=== PATIENT | female | born 1990 | race American Indian/Alaskan Native ===

== ENCOUNTER 2017-05-28 20:17 | Emergency (ER) | payer SELFPAY ==
--- NOTE | 2017-05-28 23:00 | XRay Report ---
FINAL REPORT EXAM: XR KNEE 1-2V RT HISTORY: right knee injury TECHNIQUE: AP, and lateral views of the right knee PRIORS: None. FINDINGS: No acute fracture or dislocation is seen. The soft tissues are unremarkable with no evidence for suprapatellar joint effusion. Joint spaces are maintained and bony mineralization is normal. IMPRESSION: Negative views of the right knee.
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
[2017-05-29 06:45] VITALS: BP 110/72
== END 2017-05-29 01:05 | disposition home or self-care (01) ==
LOC: ED 20:17
DX: M54.2 Cervicalgia (principal); M79.602 Pain in left arm; M25.561 Pain in right knee
CPT/HCPCS: 81025; 99283

== ENCOUNTER 2017-10-21 09:33 | Emergency (ER) | payer SELFPAY ==
[2017-10-21 09:51] VITALS: BP 112/74
[2017-10-21] MEDS ORDERED: NACL 0.9% 1000 ML 1,000 ML IV ONE (12:38)
[2017-10-21] MEDS ORDERED: NACL 0.9% 1000 ML 0 ML ONE (12:38)
--- NOTE | 2017-10-21 12:38 | Emergency Department Report ---
Blank Doc - Documentation Documentation: Patient is a 27-year-old female who is presenting with very mild cough for the last several days she is not felt well hasn't ate or drank much in the last 24 hours and she had a syncopal episode at work. Patient is complaining currently of just some dizziness fatigue. Patient states she has no sore throat productive cough nausea vomiting diarrhea at this time. Patient will be given a liter of normal saline and will also have laboratory studies done and will be reassessed by the MLP
== END 2017-10-21 14:30 | disposition left against medical advice (07) ==
LOC: ED 09:33
DX: J11.1 Influenza due to unidentified influenza virus with other respiratory manifestations (principal); Z53.21 Procedure and treatment not carried out due to patient leaving prior to being seen by health care provider
CPT/HCPCS: J7030